=== PATIENT | male | born 2000 | race Two or more races ===

== ENCOUNTER 2022-03-02 10:14 | Emergency (ER) | payer MEDICAID, OTHER ==
[~2022-03-02] VITALS: Ht 162.6 cm; Wt 85.6 kg
[2022-03-02 12:15] VITALS: BP 140/72
[2022-03-02] MEDS ORDERED: ACET-1158 PO (12:41)
[2022-03-02] MEDS ORDERED: IBUP800T26 PO (12:41)
== END 2022-03-02 12:42 | disposition home or self-care (01) ==
LOC: ER 10:14
DX: L60.0 Ingrowing nail (principal)